=== PATIENT | female | born 1995 | race Caucasian/White ===

== ENCOUNTER 2021-06-16 10:57 | Emergency (ER) | payer SELFPAY ==
[~2021-06-16] VITALS: Ht 157.5 cm; Wt 60.0 kg
[2021-06-16 11:10] VITALS: BP 133/80
[2021-06-16] MEDS ORDERED: AMOX-424 MT (12:27)
== END 2021-06-16 15:38 | disposition home or self-care (01) ==
LOC: ER 14:24
DX: H72.91 Unspecified perforation of tympanic membrane, right ear (principal)
CPT/HCPCS: 99283